=== PATIENT | male | born 1995 | race Caucasian/White ===

== ENCOUNTER 2021-11-24 15:17 | Emergency (ER) | payer SELFPAY ==
[2021-11-24 15:19] VITALS: BP 126/69; PULSE 86; RESP 18; TEMP 36.6; O2SAT 98; BMI 25.0
[2021-11-24 15:21] VITALS: BP 126/69; PULSE 86; RESP 18; TEMP 36.6; O2SAT 98
--- NOTE | 2021-11-24 15:25 | EDS_ITS ---
HPI History of Present Illness Chief Complaint: Abscess Informant: patient Onset/Context/Timing Onset: Days Context: Gradual Onset Timing: Continuous Current Severity: Moderate Maximum Severity: Moderate Narrative Narrative: 26-year-old male no seen past medical history. Has developed a left neck abscess for 7 days or so. He was seen in urgent care last who placed him on antibiotics but did no incision and drainage. He is got no better and possibly worse. He did have a subjective fever which is since resolved. He is able to swallow and denies any trouble breathing. Prior similar symptoms: No Recent Illness/Hospitalization: No PFSH PFSH Medical History no medical history no medical history Home Medications clindamycin HCl 300 mg PO TID 5 Days #30 cap 11/24/21 [Rx Last Taken Unknown] Allergy/AdvReac Type Severity Reaction Status Date / Time No Known Allergies Allergy Verified 11/24/21 15:21 Social History Smoking Status: Unknown if ever smoked ROS ROS ED ROS Narrative Fever. Review of Systems ROS Unobtainable: Denies due to encephalopathy Constitutional Constitutional ED: Reports fever(s) Eyes Eyes: Denies change in vision ENT ENT ED: Denies ear pain Cardiovascular Cardiovascular: Denies chest pain Respiratory/Chest Respiratory/Chest: Denies dyspnea Gastrointestinal Gastrointestinal: Denies abdominal pain, diarrhea, nausea or vomiting Genitourinary Genitourinary ED: Denies dysuria Musculoskeletal Musculoskeletal: Denies myalgias Integumentary Reports abscess; Denies rash Neurologic Neurologic: Denies headache(s) Psychiatric Psychiatric: Denies depression Endocrine Endocrinology: Denies polyuria EXAM Physical Exam Narrative Exam Narrative: 26-year-old male no distress vital signs stable afebrile. H EENT exam unremarkable. Neck he has a fear of he has moderate to large abscess left anterolateral neck below the angle of his jaw. There is no lymphadenopathy. The abscess is tender and fluctuant. Needs drain. There is no surrounding cellulitis. Trachea midline. Lungs clear to auscultation. Heart regular rate and rhythm no murmur. Abdomen soft nontender. Patient mo ving all 4 extremities. Neurologically is awake alert with no focal motor deficits Const Vital Signs: 11/24/21 15:19 11/24/21 15:21 Temperature 98 F 98 F Temperature Source Temporal Temporal Pulse Rate 86 86 Respiratory Rate 18 18 Blood Pressure 126/69 H 126/69 H Blood Pressure Mean 88 88 Pulse Ox 98 98 Oxygen Delivery Method Room Air Room Air Positive well nourished and well developed; Negative for obese, cachectic, contractures or unkempt General Appearance ED: well developed and NAD; Negative for unkempt, cachectic, contractures, cyanotic, diaphoretic or pallor Nutritional Appearance: Negative for cachectic or obese HEENT Reports moist mucous membranes Negative for trauma or tenderness Eyes PERRL and EOMs intact bilaterally Neck no lymphadenopathy, supple and no JVD Neck Narrative: Left anterior lateral neck abscess. Below the angle of the jaw. General: tenderness Chest Wall inspection of chest normal and palpation of chest normal Resp normal respiratory effort and clear to auscultation bilaterally Effort and Inspection: Negative for pain with movement Auscultation: Negative for rales, rhonchi or wheezes Cardio regular rate, regular rhythm, S1 normal heart sound, S2 normal heart sound and no murmurs GI normal to inspection, nondistended, normoactive bowel sounds, non-tender, non- distended and no masses Inspection: Negative for abdominal distention Auscultation: normoactive bowel sounds Palpation: soft; Negative for tender, guarding or rebound tenderness present Back/Spine no CVA tenderness General Back: Negative for CVA tenderness Cervical Spine: Negative for cervical spine tenderness Thoracic Spine / Upper Back: Negative for thoracic spinal tenderness or paraspinal muscle tenderness Extremity normal to inspection General Extremety ED: Negative for edema or tenderness General Extremity: Negative for edema Neuro oriented x3 Sensorium / Orientation: alert; Negative for lethargic or stuporous Motor Exam: strength 5/5 throughout Psych mental status grossly normal Appearance: Negative for unkempt Attitude: No agitated Mood & Affect: Negative for depressed, anxious or tearful Skin no rashes or lesions noted and no wounds Skin Narrative: Left anterior lateral neck abscess. General Skin Exam: Negative for jaundice or pallor MDM MDM MDM Narrative Medical decision making narrative: Patient has a moderate to large left anterolateral neck abscess below and left lateral jaw. Let will be applied. Then locally anesthetized with lidocaine. Make an incision and drained the wound. I will send aerobic and anaerobic wound cultures. He is currently on clindamycin which should cover this well once this drained. I was able to express about 15 to 20 cc of genesis pus. Patient tolerated procedure well. I did place several inches of quarter inch packing gauze. He was instructed to remove that in 4 to 5 days. Discharge Plan Triage Chief Complaint: Abscess Other Complaint: Edema ED Provider: Kristofer Parham Dx/Rx/DC Orders Clinical Impression: Abscess, Encounter for incision and drainage procedure Instructions: ED Abscess Incision And Drainage Prescriptions: New clindamycin HCl 150 mg capsule 300 mg PO TID 5 Days Qty: 30 RF: 0 Primary Care Provider: Care Physician,No Primary Referrals: Brock Pulliam MD [STAFF PHYSICIAN] - 1 Week if not improving NOT,DEFINED [NON-STAFF] - Activity Restrictions/Additional Instructions: Warm compresses to the area. Motrin and Tylenol for pain. Continue your clindamycin and finish the prescription. Pull the packing out in 4 to 5 days. Return if worse or follow-up if not improving. Disposition Disposition: Home, Self Care
[2021-11-24] MEDS: Lidocaine/Epi/Tetracaine 50 ML 1 APPLIC TOPICAL (15:47)
== END 2021-11-24 16:27 | disposition home or self-care (01) ==
LOC: ED 15:53
PROVIDERS: Emergency Provider Emergency Medicine; Visit Provider Emergency Medicine
DX: L02.11 Cutaneous abscess of neck (principal); R60.9 Edema, unspecified
CPT/HCPCS: 10061; 87070; 87075; 87186; 87205; 99283